=== PATIENT | male | born 1985 | race Caucasian/White ===

== ENCOUNTER 2025-04-13 21:29 | Inpatient (IN) | payer OTHER, MEDICAID ==
[~2025-04-13] VITALS: Ht 182.9 cm; Wt 86.2 kg
[2025-04-13 23:30] VITALS: BP 122/89; PULSE 83; RESP 18; TEMP 36.1; O2SAT 95
[2025-04-13 23:45] VITALS: BP 104/78; PULSE 82; RESP 18; TEMP 35.6; O2SAT 96
[2025-04-13] MEDS ORDERED: VASOPRESSIN 20 UNIT in SODIUM CHLORIDE 0.9% 99 ML IV STA (23:58)
[2025-04-13] MEDS ORDERED: HETASTARCH/NORMAL SALINE 500 ML PLAST..BAG IV STA (23:58)
[2025-04-14] VITALS (51 sets, daily range): BP systolic 78–195; BP diastolic 48–117; PULSE 75–106; RESP 17–25; TEMP 35.4–35.6; O2SAT 80–98
[2025-04-14 00:48] LABS: BG BASE EXCESS 0.9 mmol/L (-2.0-3.0); BG CARBOXYHEMOGLOBIN 0.5 % (0.5-1.5); BG DEOXYHEMOGLOBIN 2.2 % (0.0-5.0); BG FRACTION INSPIRED OXYGEN 50; BG METHEMOGLOBIN 0.3 % (0.5-1.5); BG OXYGEN SATURATION 97.8 % (94.0-98.0); BG PCO2 33.2 mmHg (35.0-48.0); BG PH 7.477 (7.350-7.450); BG PO2 94.9 mmHg (83.0-108.0); BG SAMPLE SITE ALINE; BG TOTAL HEMOGLOBIN 12.2 g/dL (13.5-17.5); BG VENT MODE VENT - AC
[2025-04-14] MEDS ORDERED: HETASTARCH/NORMAL SALINE 500 ML PLAST..BAG IV ONE (02:45)
[2025-04-14 02:54] LABS: CHLORIDE 104 mEq/L (98-107); POTASSIUM 4.1 mEq/L (3.5-5.1); SODIUM 139 mEq/L (136-145)
[2025-04-14 02:55] LABS: CALCIUM 8.2 mg/dL (8.7-10.4); CARBON DIOXIDE 29 mEq/L (21-32)
[2025-04-14 02:59] LABS: BASOPHILS % 0.4 % (0.0-2.0); DIFFERENTIAL COMMENT 0; EOSINOPHILS % 0.5 % (0.0-5.0); HEMATOCRIT. 35.3 % (42.0-52.0); HEMOGLOBIN. 11.6 g/dL (14.0-18.0); LYMPHOCYTES % 8.4 % (20.0-50.0); MEAN CORPUSCULAR HEMOGLOBIN 29.6 pg (28.0-32.0); MEAN CORPUSCULAR VOLUME 89.5 fL (80.0-94.0); MEAN PLATELET VOLUME 10.6 fl (7.4-10.4); MONOCYTES % 3.6 % (2.0-8.0); NEUTROPHILS % 87.1 % (40.0-76.0); PLATELET 407 x1000/uL (130-400); RED BLOOD CELL COUNT 3.94 mill/uL (4.7-6.1); RED CELL DISTRIBUTION WIDTH 13.4 % (11.6-14.6); WHITE BLOOD COUNT 16.2 x1000/uL (4.5-11.0)
[2025-04-14 03:00] LABS: CREATININE 0.6 mg/dL (0.6-1.3); GLUCOSE 179 mg/dL (70-105)
[2025-04-14 03:01] LABS: CREATINE KINASE MB FRACTION 9.3 ng/mL (0.5-3.6); UREA NITROGEN BLOOD 26 mg/dL (9-23)
[2025-04-14 03:02] LABS: ALANINE AMINOTRANSFERASE 13 IU/L (10-49); ALBUMIN 2.9 g/dL (3.2-4.8); AMYLASE 34 IU/L (30-118); ASPARTATE AMINOTRANSFERASE 19 IU/L (<34); BILIRUBIN DIRECT 1.1 mg/dL (<=3.0); CREATINE KINASE 90 IU/L (46-171)
[2025-04-14 03:03] LABS: BILIRUBIN TOTAL 1.8 mg/dL (0.1-1.0); PROTEIN TOTAL 6.1 g/dL (6.0-8.3)
[2025-04-14 03:12] LABS: LACTATE DEHYDROGENASE 916 IU/L (120-246)
[2025-04-14 03:17] LABS: INR 1.2; PARTIAL THROMBOPLASTIN TIME 31.6 sec (23.4-31.0); PROTHROMBIN TIME 12.7 sec (9.6-11.0)
[2025-04-14] MEDS: THIAMINE HCL 500 MG in SODIUM CHLORIDE 0.9% 95 ML IV SCH (03:26)
[2025-04-14] MEDS: VASOPRESSIN 20 UNIT in SODIUM CHLORIDE 0.9% 99 ML IV SCH (03:26)
[2025-04-14] MEDS: METHYLPREDNISOLONE SOD SUCC 2,000 MG in DEXT 5% WATER 100 ML IV SCH (03:27)
[2025-04-14] MEDS: NOREPINEPHRINE 8MG/250ML PMX 250 ML IV PRN (04:16)
[2025-04-14] MEDS: DOBUTAMINE 250MG PREMIX 250 ML IV SCH (05:15)
[2025-04-14] MEDS: ALBUMIN HUMAN 25GM/500ML (5%) IV NR (05:16)
[2025-04-14] MEDS: PIPERACILLIN/TAZO 3.375G/50ML 50 ML IV SCH (05:46)
[2025-04-14 05:51] LABS: TROPONIN I HIGH SENSITIVITY 101 ng/L (3.0-53)
[2025-04-14] MEDS ORDERED: PIPERACILLIN/TAZOBACTAM 40MG/ML SYR IV ONE (06:00)
[2025-04-14 06:21] LABS: BASOPHILS % 0.2 % (0.0-2.0); EOSINOPHILS % 0.7 % (0.0-5.0); HEMOGLOBIN. 10.3 g/dL (14.0-18.0); LYMPHOCYTES % 8.6 % (20.0-50.0); MEAN CORPUSCULAR HEMOGLOBIN 29.8 pg (28.0-32.0); MEAN CORPUSCULAR HGB CONC 33.3 g/dL (31.0-37.0); MEAN CORPUSCULAR VOLUME 89.6 fL (80.0-94.0); MEAN PLATELET VOLUME 10.6 fl (7.4-10.4); MONOCYTES % 3.8 % (2.0-8.0); NEUTROPHILS % 86.7 % (40.0-76.0); PLATELET 377 x1000/uL (130-400); RED BLOOD CELL COUNT 3.46 mill/uL (4.7-6.1); RED CELL DISTRIBUTION WIDTH 13.5 % (11.6-14.6); WHITE BLOOD COUNT 15.4 x1000/uL (4.5-11.0)
[2025-04-14 06:25] LABS: INR 1.3; PARTIAL THROMBOPLASTIN TIME 29.5 sec (23.4-31.0); PROTHROMBIN TIME 13.3 sec (9.6-11.0)
[2025-04-14 06:26] LABS: CHLORIDE 104 mEq/L (98-107); POTASSIUM 4.3 mEq/L (3.5-5.1); SODIUM 140 mEq/L (136-145)
[2025-04-14 06:27] LABS: CARBON DIOXIDE 28 mEq/L (21-32)
[2025-04-14 06:32] LABS: CREATINE KINASE MB FRACTION 9.5 ng/mL (0.5-3.6); CREATININE 0.6 mg/dL (0.6-1.3); GLUCOSE 199 mg/dL (70-105); UREA NITROGEN BLOOD 28 mg/dL (9-23)
[2025-04-14 06:33] LABS: AMYLASE 28 IU/L (30-118); LACTATE DEHYDROGENASE > 750 IU/L (120-246)
[2025-04-14 06:34] LABS: ALANINE AMINOTRANSFERASE 12 IU/L (10-49); ALBUMIN 2.6 g/dL (3.2-4.8); ASPARTATE AMINOTRANSFERASE 18 IU/L (<34); BILIRUBIN DIRECT 1.6 mg/dL (<=3.0); BILIRUBIN TOTAL 2.4 mg/dL (0.1-1.0); CREATINE KINASE 76 IU/L (46-171); PROTEIN TOTAL 5.4 g/dL (6.0-8.3)
[2025-04-14 07:02] LABS: BG BASE EXCESS 0.1 mmol/L (-2.0-3.0); BG CARBOXYHEMOGLOBIN 0.9 % (0.5-1.5); BG DEOXYHEMOGLOBIN 16.4 % (0.0-5.0); BG FRACTION INSPIRED OXYGEN 50; BG HCO3 ACT 24.4 mmol/L (21.0-28.0); BG METHEMOGLOBIN 0.3 % (0.5-1.5); BG OXYGEN SATURATION 83.4 % (94.0-98.0); BG OXYHEMOGLOBIN 82.4 % (94.0-98.0); BG PH 7.415 (7.350-7.450); BG SAMPLE SITE ALINE; BG TOTAL HEMOGLOBIN 14.4 g/dL (13.5-17.5); BG VENT MODE VENT - APRV
[2025-04-14] MEDS: LINEZOLID 600 MG PREMIX 300 ML IV SCH (08:08)
[2025-04-14] MEDS: ALBUMIN HUMAN 25GM/100ML (25%) IV SCH (08:08)
[2025-04-14] MEDS: FAMOTIDINE 20MG/2ML VIAL IV SCH (08:15)
[2025-04-14] MEDS: FUROSEMIDE 40MG/4ML VIAL IVP SCH ×2 (08:15→12:12)
[2025-04-14] MEDS: INSULIN REGULAR 100U/100ML PMX 100 ML IV SCH (08:49)
[2025-04-14 11:33] LABS: CLARITY URINE CLEAR (CLEAR); COLOR URINE DARK YELLOW (YELLOW); GLUCOSE URINE NEGATIVE (NEGATIVE); KETONES URINE NEGATIVE (NEGATIVE); LEUKOCYTE ESTERASE URINE NEGATIVE (NEGATIVE); NITRITE URINE NEGATIVE (NEGATIVE); OCCULT BLOOD URINE 2+ (NEGATIVE); PROTEIN URINE NEGATIVE (NEGATIVE); SPECIFIC GRAVITY URINE 1.013 (1.005-1.030)
[2025-04-14 11:47] LABS: HYALINE CASTS URINE 20-30 /lpf; WAXY CASTS URINE 0-5 /lpf
[2025-04-14 11:48] LABS: MUCUS URINE 1+ /lpf (NONE/TRACE); RBC URINE 15-25 /hpf (0-2)
[2025-04-14 11:49] LABS: SQUAMOUS EPITHELIAL CELL URINE NONE SEEN /lpf (RARE/1+); WBC URINE NONE SEEN /hpf (0-2)
[2025-04-14 11:50] LABS: BACTERIA URINE NONE SEEN; YEAST URINE 2+
[2025-04-14 12:01] LABS: HEMATOCRIT. 28.5 % (42.0-52.0); HEMOGLOBIN. 9.5 g/dL (14.0-18.0); MEAN CORPUSCULAR HEMOGLOBIN 30.1 pg (28.0-32.0); MEAN CORPUSCULAR HGB CONC 33.3 g/dL (31.0-37.0); MEAN CORPUSCULAR VOLUME 90.5 fL (80.0-94.0); PLATELET 342 x1000/uL (130-400); RED BLOOD CELL COUNT 3.16 mill/uL (4.7-6.1); RED CELL DISTRIBUTION WIDTH 13.2 % (11.6-14.6); WHITE BLOOD COUNT 13.9 x1000/uL (4.5-11.0)
[2025-04-14 12:08] LABS: DIFFERENTIAL COMMENT 1
[2025-04-14] MEDS: METHYLPREDNISOLONE SOD SUCC 500 MG in DEXT 5% WATER 100 ML IV SCH (12:13)
[2025-04-14 12:17] LABS: INR 1.2; PARTIAL THROMBOPLASTIN TIME 29.9 sec (23.4-31.0); PROTHROMBIN TIME 12.7 sec (9.6-11.0)
[2025-04-14 12:25] LABS: CHLORIDE 101 mEq/L (98-107); POTASSIUM 3.7 mEq/L (3.5-5.1); SODIUM 137 mEq/L (136-145)
[2025-04-14 12:26] LABS: CALCIUM 8.1 mg/dL (8.7-10.4); CARBON DIOXIDE 30 mEq/L (21-32)
[2025-04-14 12:28] LABS: PLATELET ESTIMATE NORMAL
[2025-04-14 12:31] LABS: CREATININE 0.7 mg/dL (0.6-1.3); GLUCOSE 202 mg/dL (70-105); UREA NITROGEN BLOOD 30 mg/dL (9-23)
[2025-04-14 12:32] LABS: ALANINE AMINOTRANSFERASE 14 IU/L (10-49); AMYLASE 29 IU/L (30-118); LACTATE DEHYDROGENASE 689 IU/L (120-246)
[2025-04-14 12:33] LABS: ALBUMIN 3.7 g/dL (3.2-4.8); ASPARTATE AMINOTRANSFERASE 16 IU/L (<34); BILIRUBIN DIRECT 2.4 mg/dL (<=3.0); BILIRUBIN TOTAL 3.3 mg/dL (0.1-1.0); CREATINE KINASE 62 IU/L (46-171); PHOSPHORUS 5.6 mg/dL (2.5-4.9)
[2025-04-14 12:34] LABS: PROTEIN TOTAL 6.5 g/dL (6.0-8.3)
[2025-04-14 12:48] LABS: BG BASE EXCESS 2.2 mmol/L (-2.0-3.0); BG CARBOXYHEMOGLOBIN 0.3 % (0.5-1.5); BG DEOXYHEMOGLOBIN 11.7 % (0.0-5.0); BG FRACTION INSPIRED OXYGEN 80; BG HCO3 ACT 30.1 mmol/L (21.0-28.0); BG METHEMOGLOBIN 0.3 % (0.5-1.5); BG OXYGEN SATURATION 88.2 % (94.0-98.0); BG OXYHEMOGLOBIN 87.7 % (94.0-98.0); BG PCO2 65.1 mmHg (35.0-48.0); BG PH 7.283 (7.350-7.450); BG PO2 62.5 mmHg (83.0-108.0); BG SAMPLE SITE ALINE; BG TOTAL HEMOGLOBIN 10.8 g/dL (13.5-17.5); BG VENT MODE VENT - APRV
[2025-04-14] MEDS: THIAMINE HCL 100 MG in SODIUM CHLORIDE 0.9% 49 ML IV SCH (13:23)
== END 2025-04-14 14:33 | DRG 720 ==
LOC: CVICU 21:29
PROVIDERS: ADMIT Internal Medicine; ATTEND Internal Medicine
PROC: 5A1935Z Respiratory Ventilation, Less than 24 Consecutive Hours (ICD-10-PCS; principal; 2025-04-13)
PROC: 02HV33Z Insertion of Infusion Device into Superior Vena Cava, Percutaneous Approach (ICD-10-PCS; 2025-04-14)
PROC: B548ZZA Ultrasonography of Superior Vena Cava, Guidance (ICD-10-PCS; 2025-04-14)
DX: A41.9 Sepsis, unspecified organism (principal); G93.6 Cerebral edema; I46.9 Cardiac arrest, cause unspecified; J80 Acute respiratory distress syndrome; J69.0 Pneumonitis due to inhalation of food and vomit; G93.1 Anoxic brain damage, not elsewhere classified; J18.9 Pneumonia, unspecified organism; E87.4 Mixed disorder of acid-base balance; E11.10 Type 2 diabetes mellitus with ketoacidosis without coma; J93.9 Pneumothorax, unspecified; T40.411A Poisoning by fentanyl or fentanyl analogs, accidental (unintentional), initial encounter; F19.10 Other psychoactive substance abuse, uncomplicated; E87.0 Hyperosmolality and hypernatremia; E87.6 Hypokalemia; F10.120 Alcohol abuse with intoxication, uncomplicated; Y92.89 Other specified places as the place of occurrence of the external cause
CPT/HCPCS: 36415; 36600; 71045; 76700; 80053; 80076; 81003; 82150; 82375; 82550; 82553; 82805; 82962; 83605; 83615; 83735; 84100; 84484; 85025; 87070; 87077; 87186; 93005; J1250; J1815; J1940; J2020; J2543; J2930; J3411; J3490; J7050; J7060; P9041; P9047